=== PATIENT | female | born 1945 | race Two or more races ===

== ENCOUNTER → 2022-12-10 12:11 | Outpatient (POV) | payer SELFPAY | PROVIDERS: Visit Provider Specialist/Technologist | DX: Z00.00 Encounter for general adult medical examination without abnormal findings (principal) ==

== ENCOUNTER → 2022-12-26 08:41 | Outpatient (POV) | payer SELFPAY | PROVIDERS: Visit Provider Specialist/Technologist | DX: Z00.00 Encounter for general adult medical examination without abnormal findings (principal) ==